=== PATIENT | female | born 1950 | race Hispanic/Latino ===

== ENCOUNTER 2018-06-21 09:04 | Emergency (ER) | payer OTHER ==
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
--- NOTE | 2018-06-21 11:19 | RAD REPORT ---
EXAM DESCRIPTION: RAD - Knee Right 3 View - 06/21/2018 10:35 am CLINICAL HISTORY: PAIN COMPARISON: Knee Right 3 View dated 05/04/2018 FINDINGS: Mild medial compartment space narrowing is seen. No fracture, dislocation or joint effusio n. No aggressive marrow pattern.
== END 2018-06-21 11:37 | disposition home or self-care (01) ==
LOC: ER 09:04
DX: M25.561 Pain in right knee (principal); E78.00 Pure hypercholesterolemia, unspecified; F17.210 Nicotine dependence, cigarettes, uncomplicated; Z79.899 Other long term (current) drug therapy
CPT/HCPCS: 99283